=== PATIENT | female | born 1980 | race Caucasian/White ===

== ENCOUNTER → 2021-01-14 | Outpatient (CLI) | payer OTHER ==
[2021-01-14 11:53] LABS: ABSOLUTE NEUTROPHILS 2.7 thou/uL (1.4-8.2); BASOPHILS 0.9 % (0.0-2.0); EOSINOPHILS 6.1 % (0.0-3.0); HEMATOCRIT 34.4 % (37.0-47.0); HEMOGLOBIN 10.8 gm/dL (12.0-15.0); LYMPHOCYTES 34.8 % (24.0-44.0); MCH 23.1 pg (26.0-34.0); MCHC 31.5 g/dL (28.0-37.0); MCV 73.2 fL (80.0-100.0); PLATELET COUNT 380 thou/uL (150-400); POLYS 49.2 % (36.0-66.0); WBC 5.4 thou/uL (4.0-11.0)
[2021-01-14 12:24] LABS: URINE BILIRUBIN NEGATIVE (Negative); URINE BLOOD NEGATIVE (Negative); URINE CLARITY CLEAR; URINE COLOR YELLOW; URINE GLUCOSE-RANDOM* NEGATIVE (Negative); URINE KETONES NEGATIVE (Negative); URINE LEUKOCYTES-REFLEX NEGATIVE (Negative); URINE NITRITE-REFLEX NEGATIVE (Negative); URINE PROTEIN (DIPSTICK) NEGATIVE (Negative); URINE UROBILINOGEN 0.2 E.U./dl (0.2-1.0)
[2021-01-14 12:26] LABS: ANION GAP 6 mmol/L (7-16); BUN 9 mg/dL (7-18); CALCIUM 8.9 mg/dL (8.5-10.1); CHLORIDE 103 mmol/L (98-107); CHOLESTEROL 208 mg/dL (<200); CO2 31 mmol/L (21-32); CREATININE 0.7 mg/dL (0.6-1.0); GLUCOSE 94 mg/dL (74-106); HDL CHOLESTEROL 54 mg/dL (>40); LDL CHOLESTEROL 136 mg/dL (<100); POTASSIUM 3.8 mmol/L (3.5-5.1); SGOT 16 U/L (15-37); SGPT 21 U/L (30-65); SODIUM 140 mmol/L (136-145); TC:HDL 3.9 Ratio (Not establshd); TOTAL BILIRUBIN 0.5 mg/dL (0.2-1.0); TOTAL PROTEIN 8.2 g/dL (6.4-8.2); TRIGLYCERIDE 92 mg/dL (<150); VLDL 18 mg/dL (<40)
== END ==
LOC: LAB 10:44
PROVIDERS: ATTEND Family Medicine
DX: I10 Essential (primary) hypertension (principal)